=== PATIENT | female | born 1945 | race Caucasian/White ===

== ENCOUNTER → 2016-05-10 | Outpatient (CLI) | payer MEDICARE, OTHER ==
--- NOTE | 2016-05-10 12:57 | REP ---
Clinical: Lung screening. History of smoking. Technique: Axial low-dose images from the thoracic inlet to the upper abdomen using lung screening technique. Findings: Moderate emphysematous changes are appreciated with mild perihilar and basilar bronchiectasis as well as focal area of scarring along the periphery of the right apex. No pulmonary parenchymal consolidation, nodule or mass lesion. No pleural effusion/reaction or pneumothorax. Mild ectasia to the thoracic aorta. Impression: Lung-RADS category I-S. Right apical scarring and emphysematous changes noted. No pulmonary parenchymal nodule or mass lesion identified. Signed by Sunday Gaitan MD 05/10/2016 12:48 P
== END ==
LOC: M RAD 12:25
PROVIDERS: ATTEND Internal Medicine Pulmonary Disease
DX: J43.1 Panlobular emphysema (principal); F17.218 Nicotine dependence, cigarettes, with other nicotine-induced disorders

== ENCOUNTER 2016-10-11 10:46 | Emergency (ER) | payer MEDICARE, OTHER ==
[~2016-10-11] VITALS: Ht 162.6 cm; Wt 60.9 kg
[2016-10-11] MEDS ORDERED: MELO15TA4 (11:02)
[2016-10-11] MEDS ORDERED: METO1TAB33 (11:02)
[2016-10-11] MEDS ORDERED: ESCI20TA (11:02)
[2016-10-11] MEDS ORDERED: LOSA100T36 (11:02)
[2016-10-11] MEDS ORDERED: VITA250L PO (11:02)
[2016-10-11] MEDS ORDERED: DICL1GEL3 (11:02)
[2016-10-11] MEDS ORDERED: ANOR1AER (11:02)
[2016-10-11] MEDS ORDERED: ALPR0.25 (11:02)
[2016-10-11] MEDS ORDERED: ASPI81TA85 PO (11:02)
[2016-10-11] MEDS ORDERED: PANT40TA2 (11:02)
[2016-10-11] MEDS ORDERED: PRESCAP PO (11:02)
[2016-10-11] MEDS ORDERED: PROAAER10 (11:02)
[2016-10-11] MEDS ORDERED: IRON18TA2 PO (11:02)
[2016-10-11] MEDS ORDERED: TRAM50TA2 (11:02)
[2016-10-11] MEDS ORDERED: ZANA4CAP (11:02)
[2016-10-11 11:51] LABS: EOS # 0.1 K/mm3 (0.0-0.50); EOS % 2.5 % (0.0-3.0); LARGE UNSTAINED CELL # 0.1 K/mm3 (0.0-0.4); LARGE UNSTAINED CELL % 2.1 % (0.0-4.0); LYMPH # 1.3 K/mm3 (1.5-4.5); LYMPH % 23.4 % (24.0-44.0); MEAN CORPUSCULAR HEMOGLOBIN 33.2 pg (27.0-33.0); MEAN CORPUSCULAR HGB CONC 33.1 g/dl (32.0-36.5); MEAN CORPUSCULAR VOLUME 100.3 fl (80.0-96.0); MONO # 0.4 K/mm3 (0.0-0.8); MONO % 6.8 % (0.0-5.0); NEUTROPHILS # 3.3 K/mm3 (1.8-7.7); NEUTROPHILS % 64.3 % (36.0-66.0); PLATELET COUNT, AUTOMATED 253 k/mm3 (150-450); RED CELL DISTRIBUTION WIDTH 13.4 % (11.5-14.5); WHITE BLOOD COUNT 5.1 K/mm3 (4.0-10.0)
[2016-10-11 11:53] LABS: ADD MORPHOLOGY? NO
[2016-10-11 11:56] LABS: ANION GAP 7 MEQ/L (8-16); BLOOD UREA NITROGEN 14 MG/DL (7-18); CALCIUM LEVEL 8.5 MG/DL (8.8-10.2); CARBON DIOXIDE LEVEL 26 MEQ/L (21-32); CHLORIDE LEVEL 103 MEQ/L (98-107); CREATININE FOR GFR 0.78 MG/DL (0.55-1.02); GLOMERULAR FILTRATION RATE > 60.0 (>39); GLUCOSE, FASTING 88 MG/DL (83-110); POTASSIUM SERUM 4.4 MEQ/L (3.5-5.1); SODIUM LEVEL 136 MEQ/L (136-145)
--- NOTE | 2016-10-11 12:07 | REP ---
CT Head without contrast HISTORY: Visual changes COMPARISON: 01/12/2015 Areas of decreased attenuation are present in the basal ganglia. These represent old lacunar infarctions. Areas of decreased attenuation are present in the periventricular and subcortical white matter. This represents small-vessel ischemic disease. There is no intraparenchymal hemorrhage, acute infarct, mass or midline shift. The ventricular system and cortical sulci are dilated consistent with minimal volume loss. There is no extra cerebral collection. There is no fracture. The visualized sinuses are clear. IMPRESSION: 1. Old bilateral basal ganglia lacunar infarctions. 2. Small vessel ischemic disease. 3. Mild volume loss. Signed by Fabian Spann MD 10/11/2016 11:58 A
[2016-10-11 13:47] VITALS: BP 156/67
== END 2016-10-11 13:53 | disposition home or self-care (01) ==
LOC: M ED 10:46
DX: H53.8 Other visual disturbances (principal); I10 Essential (primary) hypertension; F32.9 Major depressive disorder, single episode, unspecified; Z72.0 Tobacco use

== ENCOUNTER → 2016-10-29 | Outpatient (REF) | payer MEDICARE, OTHER ==
[~2016-10-29] MED LIST: ALPR0.25; ANOR1AER; ASPI81TA85 PO; DICL1GEL3; ESCI20TA; IRON18TA2 PO; LOSA100T36; MELO15TA4; METO1TAB33; PANT40TA2; PRESCAP PO; PROAAER10; TRAM50TA2; VITA250L PO; ZANA4CAP
== END ==
LOC: M LAB REF 13:41
PROVIDERS: ATTEND Physician Assistant
DX: L02.511 Cutaneous abscess of right hand (principal)

== ENCOUNTER → 2017-03-11 | Outpatient (REF) | payer MEDICARE, OTHER ==
[2017-03-11 19:42] LABS: IRON (FE) 142 UG/DL (50-170)
[2017-03-11 20:20] LABS: VITAMIN B12 LEVEL 957 PG/ML (247-911)
== END ==
LOC: M LAB REF 17:27
DX: D51.9 Vitamin B12 deficiency anemia, unspecified (principal); D50.9 Iron deficiency anemia, unspecified
CPT/HCPCS: 83540

== ENCOUNTER → 2017-03-12 | Outpatient (REF) | payer MEDICARE, OTHER ==
[2017-03-12 10:52] LABS: PLATELET COUNT, AUTOMATED 304 10^3/uL (150-450)
[2017-03-12 11:06] LABS: INR 0.94; PROTHROMBIN TIME 12.7 SECONDS (12.4-14.5)
[2017-03-12 11:07] LABS: PARTIAL THROMBOPLASTIN TIME 26.8 SECONDS (26.8-37.9)
== END ==
LOC: M LABDRAW1 09:55
DX: Z01.812 Encounter for preprocedural laboratory examination (principal); M51.37 Other intervertebral disc degeneration, lumbosacral region; M43.16 Spondylolisthesis, lumbar region; M51.26 Other intervertebral disc displacement, lumbar region; M48.07 Spinal stenosis, lumbosacral region
CPT/HCPCS: 85049

== ENCOUNTER → 2017-03-31 | Outpatient (REF) | payer MEDICARE, OTHER ==
[2017-03-31 20:57] LABS: CREATININE FOR GFR 0.81 MG/DL (0.55-1.30); GLOMERULAR FILTRATION RATE > 60.0 (>39)
[2017-03-31 20:57] LABS: BLOOD UREA NITROGEN 20 MG/DL (7-18)
== END ==
LOC: M LABDRAW1 18:31
DX: M51.37 Other intervertebral disc degeneration, lumbosacral region (principal)
CPT/HCPCS: 82565

== ENCOUNTER → 2017-04-18 | Outpatient (CLI) | payer MEDICARE, OTHER | LOC: M PLARAD 09:43 | DX: M51.37 Other intervertebral disc degeneration, lumbosacral region (principal); I10 Essential (primary) hypertension; Z87.442 Personal history of urinary calculi | CPT/HCPCS: 72195 ==

== ENCOUNTER 2017-07-01 17:27 | Emergency (ER) | payer MEDICARE, OTHER ==
[2017-07-01 18:30] LABS: BASO # 0.1 10^3/uL (0.0-0.2); BASO % 1.1 % (0.0-1.0); EOS # 0.2 10^3/uL (0.0-0.50); EOS % 3.2 % (0.0-3.0); HEMATOCRIT 32.2 % (36.0-47.0); HEMOGLOBIN 10.8 g/dl (12.0-15.5); IMMATURE GRANULOCYTE % 0.3 % (0-3.0); LYMPH # 1.8 10^3/uL (1.5-4.5); MEAN CORPUSCULAR HEMOGLOBIN 32.9 pg (27.0-33.0); MEAN CORPUSCULAR HGB CONC 33.5 g/dl (32.0-36.5); MEAN CORPUSCULAR VOLUME 98.2 fl (80.0-96.0); MONO # 0.7 10^3/uL (0.0-0.8); MONO % 10.8 % (0.0-5.0); NEUTROPHILS # 3.7 10^3/uL (1.8-7.7); NEUTROPHILS % 56.6 % (36.0-66.0); PLATELET COUNT, AUTOMATED 293 10^3/uL (150-450); RED BLOOD COUNT 3.28 10^6/uL (4.00-5.40); RED CELL DISTRIBUTION WIDTH 13.9 % (11.5-14.5); WHITE BLOOD COUNT 6.5 10^3/uL (4.0-10.0)
[2017-07-01 18:52] LABS: ANION GAP 7 MEQ/L (8-16); BLOOD UREA NITROGEN 17 MG/DL (7-18); CALCIUM LEVEL 8.5 MG/DL (8.8-10.2); CARBON DIOXIDE LEVEL 23 MEQ/L (21-32); CHLORIDE LEVEL 105 MEQ/L (98-107); CREATININE FOR GFR 0.75 MG/DL (0.55-1.30); GLOMERULAR FILTRATION RATE > 60.0 (>39); GLUCOSE, FASTING 112 MG/DL (70-100); MAGNESIUM LEVEL 2.4 MG/DL (1.8-2.4); SODIUM LEVEL 135 MEQ/L (136-145); TROPONIN I < 0.02 NG/ML (< 0.10)
[2017-07-01 18:57] LABS: CK-MB VALUE MASS 5.6 NG/ML (<3.6); CPK CREATINE PHOSPHOKINASE 225 U/L (26-192); MB/CK RELATIVE INDEX 2.48 (< OR =4)
[2017-07-02 00:29] LABS: BEDSIDE GLUCOSE 128 MG/DL (83-110)
== END 2017-07-01 19:54 | disposition home or self-care (01) ==
LOC: M ED 17:27
DX: R55 Syncope and collapse (principal); R00.1 Bradycardia, unspecified; I10 Essential (primary) hypertension; J44.9 Chronic obstructive pulmonary disease, unspecified; K21.9 Gastro-esophageal reflux disease without esophagitis; F33.9 Major depressive disorder, recurrent, unspecified; F41.9 Anxiety disorder, unspecified; M19.90 Unspecified osteoarthritis, unspecified site; F17.200 Nicotine dependence, unspecified, uncomplicated; Z79.899 Other long term (current) drug therapy; Z98.890 Other specified postprocedural states; Z79.82 Long term (current) use of aspirin; Z88.5 Allergy status to narcotic agent; Z88.1 Allergy status to other antibiotic agents; Z88.0 Allergy status to penicillin; Z88.2 Allergy status to sulfonamides
CPT/HCPCS: 71046

== ENCOUNTER 2017-10-11 08:19 | Emergency (ER) | payer MEDICARE, OTHER ==
[2017-10-11] MEDS ORDERED: ONDANSETRON 4MG/2ML VIAL (J2405) IV (09:45)
[2017-10-11] MEDS ORDERED: KETOROLAC 30 MG/ML VIAL (J1885) IV (09:45)
[2017-10-11 10:09] LABS: BASO % 0.8 % (0.0-1.0); EOS # 0.1 10^3/uL (0.0-0.50); EOS % 1.5 % (0.0-3.0); HEMATOCRIT 31.8 % (36.0-47.0); HEMOGLOBIN 10.6 g/dl (12.0-15.5); IMMATURE GRANULOCYTE % 0.4 % (0-3.0); LYMPH % 18.9 % (24.0-44.0); MEAN CORPUSCULAR HEMOGLOBIN 33.3 pg (27.0-33.0); MEAN CORPUSCULAR HGB CONC 33.3 g/dl (32.0-36.5); MONO # 0.5 10^3/uL (0.0-0.8); NEUTROPHILS # 3.5 10^3/uL (1.8-7.7); NEUTROPHILS % 68.4 % (36.0-66.0); PLATELET COUNT, AUTOMATED 272 10^3/uL (150-450); RED BLOOD COUNT 3.18 10^6/uL (4.00-5.40); WHITE BLOOD COUNT 5.2 10^3/uL (4.0-10.0)
[2017-10-11] MEDS: ONDANSETRON 4MG/2ML VIAL (J2405) IV (10:16)
[2017-10-11 10:36] LABS: ALBUMIN 3.3 GM/DL (3.2-5.2); ALBUMIN/GLOBULIN RATIO 1.43 (1.00-1.93); ALKALINE PHOSPHATASE 52 U/L (45-117); ALT/SGPT 19 U/L (12-78); ANION GAP 7 MEQ/L (8-16); AST/SGOT 16 U/L (7-37); BILIRUBIN,DIRECT < 0.1 MG/DL (0.0-0.2); BILIRUBIN,TOTAL 0.3 MG/DL (0.2-1.0); BLOOD UREA NITROGEN 19 MG/DL (7-18); CALCIUM LEVEL 7.6 MG/DL (8.8-10.2); CARBON DIOXIDE LEVEL 25 MEQ/L (21-32); CHLORIDE LEVEL 108 MEQ/L (98-107); CREATININE FOR GFR 0.66 MG/DL (0.55-1.30); GLOMERULAR FILTRATION RATE > 60.0 (>39); GLUCOSE, FASTING 88 MG/DL (70-100); LIPASE 173 U/L (73-393); POTASSIUM SERUM 4.1 MEQ/L (3.5-5.1); SODIUM LEVEL 140 MEQ/L (136-145); TOTAL PROTEIN 5.6 GM/DL (6.4-8.2)
[2017-10-11 10:43] LABS: KETONE, URINE AUTO RFX TRACE mg/dL (NEGATIVE); LEUKOCYTE ESTERASE UR AUTO RFX NEGATIVE (NEGATIVE); NITRITE, URINE AUTO RFX NEGATIVE (NEGATIVE); RBC, URINE AUTO RFX 1 /HPF (0-3); SPECIFIC GRAVITY UR AUTO RFX 1.012 (1.002-1.035); SQUAM EPITHELIAL CELL UR AURFX 0 /HPF (0-6); WBC, URINE AUTO RFX 1 /HPF (0-3)
[2017-10-11] MEDS: MORPHINE 2 MG/ML 1ML SYRINGE (J2270) IV ×2 (10:43)
== END 2017-10-11 12:54 | disposition home or self-care (01) ==
LOC: M ED 08:19
DX: K80.50 Calculus of bile duct without cholangitis or cholecystitis without obstruction (principal); R00.1 Bradycardia, unspecified; I10 Essential (primary) hypertension; K21.9 Gastro-esophageal reflux disease without esophagitis; J44.9 Chronic obstructive pulmonary disease, unspecified; Z86.19 Personal history of other infectious and parasitic diseases; M19.90 Unspecified osteoarthritis, unspecified site; F17.210 Nicotine dependence, cigarettes, uncomplicated; Z88.5 Allergy status to narcotic agent; Z88.1 Allergy status to other antibiotic agents; Z88.0 Allergy status to penicillin; Z88.2 Allergy status to sulfonamides; Z90.49 Acquired absence of other specified parts of digestive tract; Z82.49 Family history of ischemic heart disease and other diseases of the circulatory system
CPT/HCPCS: J2405

== ENCOUNTER → 2017-10-16 | Outpatient (REF) | payer MEDICARE, OTHER ==
[2017-10-17 14:29] LABS: CONTROL LINE HPYORI INT CTR LINE PRESENT; H PYLORI QUALITATIVE IgG NEGATIVE (NEGATIVE)
== END ==
LOC: M LAB REF 17:36
DX: R10.13 Epigastric pain (principal)
CPT/HCPCS: 86677

== ENCOUNTER → 2017-10-24 | Outpatient (CLI) | payer MEDICARE, OTHER | LOC: M RAD 07:23 | DX: R10.11 Right upper quadrant pain (principal) | CPT/HCPCS: J2805 ==

== ENCOUNTER → 2018-03-03 | Outpatient (REF) | payer MEDICARE, OTHER ==
[~2018-03-03] MED LIST changes: +CITRTAB18 PO; -LOSA100T36; +LOSA100T50; +MELO15TA28; -MELO15TA4; -METO1TAB33; +METO1TAB33 PO; +NEUR100C PO; +NORCOTAB PO; -PANT40TA2; +PANT40TA3; +ZOFR4TAB14 PO; +ginseng
[2018-03-03 14:19] LABS: ALBUMIN 3.8 GM/DL (3.2-5.2); ALT/SGPT 13 U/L (12-78); BILIRUBIN,TOTAL 0.5 MG/DL (0.2-1.0); BLOOD UREA NITROGEN 13 MG/DL (7-18); CALCIUM LEVEL 8.9 MG/DL (8.8-10.2); CARBON DIOXIDE LEVEL 25 MEQ/L (21-32); CHLORIDE LEVEL 100 MEQ/L (98-107); CREATININE FOR GFR 0.74 MG/DL (0.55-1.30); DRVV SCREEN 35.8 SEC; GLOMERULAR FILTRATION RATE > 60.0 (>39); GLUCOSE, FASTING 88 MG/DL (70-100); POTASSIUM SERUM 4.3 MEQ/L (3.5-5.1); RHEUMATOID FACTOR QUANT < 10.0 IU/ML (<15.0); SODIUM LEVEL 134 MEQ/L (136-145); TOTAL PROTEIN 6.4 GM/DL (6.4-8.2)
[2018-03-03 14:21] LABS: PTT LUPUS TYPE ANTICOAG SCREEN 0.9 (0-1.2)
[2018-03-03 14:49] LABS: VITAMIN B12 LEVEL 1517 PG/ML (247-911)
[2018-03-03 15:22] LABS: BASO # 0.1 10^3/uL (0.0-0.2); BASO % 1.2 % (0.0-1.0); EOS # 0.1 10^3/uL (0.0-0.50); EOS % 1.9 % (0.0-3.0); HEMATOCRIT 32.2 % (36.0-47.0); HEMOGLOBIN 10.7 g/dl (12.0-15.5); LYMPH # 1.5 10^3/uL (1.5-4.5); LYMPH % 28.1 % (24.0-44.0); MEAN CORPUSCULAR HEMOGLOBIN 32.5 pg (27.0-33.0); MEAN CORPUSCULAR HGB CONC 33.2 g/dl (32.0-36.5); MEAN CORPUSCULAR VOLUME 97.9 fl (80.0-96.0); MONO # 0.5 10^3/uL (0.0-0.8); MONO % 10.4 % (0.0-5.0); NEUTROPHILS % 58.2 % (36.0-66.0); PLATELET COUNT, AUTOMATED 240 10^3/uL (150-450); RED BLOOD COUNT 3.29 10^6/uL (4.00-5.40); WHITE BLOOD COUNT 5.2 10^3/uL (4.0-10.0)
[2018-03-03 15:38] LABS: HEMOGLOBIN A1c 5.2 %
[2018-03-03 16:35] LABS: ERYTHROCYTE SEDIMENTATION RATE 24 mm/hr (0-30)
[2018-03-04 17:35] LABS: FOLATE > 24.0 NG/ML (>5.4)
[2018-03-05 11:15] LABS: ALBUMIN 4.11 GM/DL (3.29-5.55); ALBUMIN % 64.2 % (55.8-66.1); ALPHA-1-GLOBULIN % 4.5 % (2.9-4.9); ALPHA-1-GLOBULINS 0.29 GM/DL (0.17-0.41); ALPHA-2-GLOBULINS 0.75 GM/DL (0.42-0.99); ALPHA-2-GLOBULINS % 11.7 % (7.1-11.8); BETA-1-GLOBULINS 0.44 GM/DL (0.28-0.60); BETA-1-GLOBULINS % 6.8 % (4.7-7.2); BETA-2-GLOBULINS 0.24 GM/DL (0.19-0.55); BETA-2-GLOBULINS % 3.7 % (3.2-6.5); GAMMA GLOBULIN % 9.1 % (11.1-18.8); GAMMA GLOBULINS 0.58 GM/DL (0.65-1.58)
[2018-03-06 10:23] LABS: VITAMIN B1 LEVEL WHOLE BLOOD 81.1 nmol/L (66.5-200.0); VITAMIN B6,PYRIDOXAL PHOSPHATE 10.8 ug/L (2.0-32.8)
[2018-03-07 00:06] LABS: ANCA-ATYPICAL <1:20 titer (Neg:<1:20); ANTI DOUBLE STRAND-DNA AB <1 IU/mL (0-9); ANTINUCLEAR ANTIBODIES DIRECT Negative (Negative); CERULOPLASMIN 29.8 mg/dL (19.0-39.0); COPPER PLASMA 128 ug/dL (72-166); CYTOPLASMIC NEUTROP AB ANCA-C <1:20 titer (Neg:<1:20); LEAD BLOOD ADULT 2 ug/dL (0-4); Lyme Disease IgG/IgM Antibodie <0.91 ISR (0.00-0.90); Lyme Disease IgM Ab Quantitati <0.80 index (0.00-0.79); MERCURY LEVEL 1.2 ug/L (0.0-14.9); PERINUCLEAR AB ANCA-P <1:20 titer (Neg:<1:20); SJOGREN'S ANTI SS-A <0.2 AI (0.0-0.9); SJOGREN'S ANTI SS-B <0.2 AI (0.0-0.9); VITAMIN E(ALPHA TOCOPHEROL) 36.4 mg/L (9.0-29.0); VITAMIN E(GAMMA TOCOPHEROL) 0.3 mg/L (0.5-4.9)
== END ==
LOC: M LABNEURO 09:00
PROVIDERS: ATTEND Psychiatry & Neurology Neurology
DX: G62.9 Polyneuropathy, unspecified (principal)

== ENCOUNTER 2018-08-22 16:21 | Emergency (ER) | payer MEDICARE, OTHER ==
[~2018-08-22] VITALS: Ht 165.1 cm; Wt 63.2 kg
[~2018-08-22 16:21] MED LIST changes: +HYDR-3715 PO; -NORCOTAB PO
[2018-08-22] MEDS ORDERED: MORPHINE 2 MG/ML 1ML SYRINGE (J2270) IV PRN (16:45)
[2018-08-22] MEDS ORDERED: ONDANSETRON 4MG/2ML VIAL (J2405) IV ONE (16:45)
[2018-08-22 17:02] LABS: BASO # 0.1 10^3/uL (0.0-0.2); EOS # 0.4 10^3/uL (0.0-0.50); HEMATOCRIT 29.4 % (36.0-47.0); HEMOGLOBIN 9.3 g/dl (12.0-15.5); LYMPH # 1.6 10^3/uL (1.5-4.5); LYMPH % 19.6 % (24.0-44.0); MEAN CORPUSCULAR HEMOGLOBIN 32.2 pg (27.0-33.0); MEAN CORPUSCULAR HGB CONC 31.6 g/dl (32.0-36.5); MEAN CORPUSCULAR VOLUME 101.7 fl (80.0-96.0); MONO # 0.7 10^3/uL (0.0-0.8); MONO % 8.7 % (0.0-5.0); NEUTROPHILS # 5.4 10^3/uL (1.8-7.7); NEUTROPHILS % 65.3 % (36.0-66.0); PLATELET COUNT, AUTOMATED 335 10^3/uL (150-450); RED BLOOD COUNT 2.89 10^6/uL (4.00-5.40); WHITE BLOOD COUNT 8.2 10^3/uL (4.0-10.0)
[2018-08-22] MEDS ORDERED: OMEGCAP4 PO (17:08)
[2018-08-22] MEDS ORDERED: CIDA500T2 PO (17:10)
[2018-08-22] MEDS ORDERED: DOCU-129 PO (17:10)
[2018-08-22] MEDS ORDERED: RA T500C2 PO (17:10)
--- NOTE | 2018-08-22 17:17 | REP ---
Clinical: Emphysema Comparison: 08/04/2018 . Findings: The mediastinum and cardiac silhouette are stable and within normal limits for portable technique. The lung stahl demonstrate chronic stable changes without acute consolidation, effusion, or pneumothorax. Skeletal structures are intact. Impression: No acute cardiopulmonary process appreciated. Electronically Signed by Sunday Gaitan MD 08/22/2018 05:09 P
[2018-08-22 17:41] LABS: ALBUMIN 3.3 GM/DL (3.2-5.2); ALT/SGPT 18 U/L (12-78); BILIRUBIN,DIRECT 0.1 MG/DL (0.0-0.2); BILIRUBIN,TOTAL 0.2 MG/DL (0.2-1.0); BLOOD UREA NITROGEN 18 MG/DL (7-18); CALCIUM LEVEL 8.4 MG/DL (8.8-10.2); CARBON DIOXIDE LEVEL 26 MEQ/L (21-32); CHLORIDE LEVEL 104 MEQ/L (98-107); CK-MB VALUE MASS 4.7 NG/ML (<3.6); CPK CREATINE PHOSPHOKINASE 304 U/L (26-192); CREATININE FOR GFR 0.77 MG/DL (0.55-1.30); GLOMERULAR FILTRATION RATE > 60.0 (>39); GLUCOSE, FASTING 88 MG/DL (70-100); LIPASE 174 U/L (73-393); MB/CK RELATIVE INDEX 1.55 (< OR =4); NT-PRO BNP 694 PG/ML (<450); POTASSIUM SERUM 4.4 MEQ/L (3.5-5.1); SODIUM LEVEL 137 MEQ/L (136-145); TOTAL PROTEIN 6.2 GM/DL (6.4-8.2); TROPONIN I < 0.02 NG/ML (< 0.10)
[2018-08-22] MEDS ORDERED: rOPINIRole 2MG TAB PO STA (17:53)
[2018-08-22] MEDS ORDERED: ISOVUE-370 76% 100ML VIAL (Q9967) As Ordered ONE (17:57)
--- NOTE | 2018-08-22 18:34 | ECGEPIP ---
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
--- NOTE | 2018-08-22 18:48 | REPVR ---
EXAM: CT Angiography Chest With Contrast EXAM DATE/TIME: 08/22/2018 6:11 PM CLINICAL HISTORY: 73 years old, female; Chest pain; Type not specified; Additional info: Pleuritic cp TECHNIQUE: Imaging protocol: Axial computed tomographic angiography images of the chest with intravenous contrast using CT angiography protocol. Coronal and sagittal reformatted images were created and reviewed. 3D rendering: MIP reconstructed images were created and reviewed. Radiation optimization: All CT scans at this facility use at least one of these dose optimization techniques: automated exposure control; mA and/or kV adjustment per patient size (includes targeted exams where dose is matched to clinical indication); or iterative reconstruction. Contrast material: ISOVUE 370; Contrast volume: 100 ml; Contrast route: IV; COMPARISON: CR PORTABLE CHEST X-RAY 08/22/2018 5:02 PM FINDINGS: Pulmonary arteries: Normal. No pulmonary emboli. Aorta: Unremarkable. No aortic aneurysm. No aortic dissection. Lungs: Coarse linear pleural-based opacities noted in the right upper lobe, the right lower lobe and the left lower lobe. Scattered "tree in bud" pattern of inflammation noted in the right middle lobe and right upper lobe Pleural space: Unremarkable. No pneumothorax. No pleural effusion. Heart: Unremarkable. No cardiomegaly. No pericardial effusion. Lymph nodes: Unremarkable. No enlarged lymph nodes. Bones/joints: Markedly narrowed intervertebral disc space noted at L1-2 with endplate sclerosis, marginal osteophytes and vacuum disc.. Anterior aspect of the right fifth rib is bifid Soft tissues: Unremarkable. IMPRESSION: 1. No acute pulmonary embolism. 2. Mild patchy bronchiolitis suggested in the right upper lobe and right middle lobe 3. Scarring in both lungs Electronically signed by: Cierra Purvis On 08/22/2018 18:47:50 PM
--- NOTE | 2018-08-22 19:07 | REPVR ---
EXAM: CT Abdomen and Pelvis With Contrast EXAM DATE/TIME: 08/22/2018 6:11 PM CLINICAL HISTORY: 73 years old, female; Abdominal pain; Flank; Right; Additional info: Flank pain TECHNIQUE: Imaging protocol: Axial computed tomography images of the abdomen and pelvis with intravenous contrast. Coronal and sagittal reformatted images were created and reviewed. Radiation optimization: All CT scans at this facility use at least one of these dose optimization techniques: automated exposure control; mA and/or kV adjustment per patient size (includes targeted exams where dose is matched to clinical indication); or iterative reconstruction. Contrast material: ISOVUE 370; Contrast volume: 100 ml; Contrast route: IV; COMPARISON: No relevant prior studies available. FINDINGS: Lungs: Coarse linear somewhat irregular opacity noted in the right lower lobe contiguous with the major fissure coarse linear opacity at the left lung base. Liver: Normal. No mass. Gallbladder and bile ducts: Common bile duct measures 5 mm. Pancreas: Pancreatic duct within the tail the pancreas is mildly prominent measuring 4 mm in diameter. Spleen: Normal. No splenomegaly. Adrenals: Normal. No mass. Kidneys and ureters: Mild fullness of the renal collecting systems bilaterally. No definite renal calculi. Stomach and bowel: There is mild thickening noted of the gastric folds within the fundus and body of the stomach Moderate amount of stool seen within the colon. Appendix: No evidence of appendicitis. Intraperitoneal space: Mild hazy density noted of the mesenteric fat within the abdomen. Vasculature: Normal. No abdominal aortic aneurysm. Lymph nodes: Normal. No enlarged lymph nodes. Bladder: The bladder is distended measuring 10 x 6.4 x 11.3 cm for a volume of 372 cc. Reproductive: Unremarkable as visualized. Bones/joints: Rotatory levoscoliosis of the thoracolumbar spine. Advanced degenerative changes noted throughout the lumbar spine Soft tissues: Relative atrophy of the right gluteus medius IMPRESSION: 1. Mild fullness of the renal pelvis bilaterally in both kidneys may be related to mild bladder distention. The bladder contains 372 cc of urine. No calculi 2. Mild thickening of the gastric folds within the fundus and body of the stomach. Gastritis might be considered. 3. Moderate amount of stool in the colon. 4. Mild hazy density noted within the mesenteric fat of the abdomen. No ascites. No air. The appearance is nonspecific. Considerations include mesenteric vascular congestion, peritonitis, mesenteric adenitis 5. Linear somewhat irregular opacity in the right lower lobe contiguous with the major fissure probably not significantly changed from 2017 although not as well-seen probably due to technical factors (old examination was a low dose CT). Electronically signed by: Cierra Purvis On 08/22/2018 19:06:44 PM
[2018-08-22 22:22] LABS: CK-MB VALUE MASS 4.3 NG/ML (<3.6); CPK CREATINE PHOSPHOKINASE 249 U/L (26-192); MB/CK RELATIVE INDEX 1.73 (< OR =4); TROPONIN I < 0.02 NG/ML (< 0.10)
[2018-08-22 22:31] VITALS: BP 125/58
[2018-08-22] MEDS ORDERED: KETO10TAB PO (22:44)
--- NOTE | 2018-08-23 15:37 | ECGEPIP ---
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
== END 2018-08-22 22:56 | disposition home or self-care (01) ==
LOC: M ED 16:21 → EDBD 16:21 → M ED 22:56
DX: R07.89 Other chest pain (principal); R11.0 Nausea; I10 Essential (primary) hypertension; J44.9 Chronic obstructive pulmonary disease, unspecified; E78.9 Disorder of lipoprotein metabolism, unspecified; G89.29 Other chronic pain; M54.9 Dorsalgia, unspecified; Z87.442 Personal history of urinary calculi; Z79.899 Other long term (current) drug therapy; Z79.82 Long term (current) use of aspirin; Z88.0 Allergy status to penicillin; Z88.1 Allergy status to other antibiotic agents; Z88.2 Allergy status to sulfonamides; Z88.5 Allergy status to narcotic agent; F17.210 Nicotine dependence, cigarettes, uncomplicated
CPT/HCPCS: 71045; 71275; 74177; 80048; 80076; 81001; 82550; 82553; 83690; 83880; 84443; 84484; 85025; 93005; 93041; 94760; 96374; 96375; 99285; J2270; J2405; Q9967

== ENCOUNTER → 2018-09-29 | Outpatient (CLI) | payer MEDICARE, OTHER ==
[~2018-09-29] MED LIST changes: +CIDA500T2 PO; +DOCU-129 PO; +KETO10TAB PO; +OMEGCAP4 PO; +RA T500C2 PO
--- NOTE | 2018-09-30 08:01 | REP ---
REASON FOR EXAM: Followup right upper and right middle lobe patchy opacities. All prior chest CTs were reviewed, the latest of which is dated 08/22/2018. The lack of intravenous contrast decreases the sensitivity of the exam. The mediastinum and pulmonary sina are unchanged. There is adenopathy. In the aortic pulmonary window borderline and mildly enlarged lymph nodes cannot be ruled out in the pulmonary sina due to the lack of the intravenous contrast. There are no pleural or pericardial effusions. There is no change in the imaged upper abdomen or imaged osseous structures. IMPRESSION: Evaluation of the lung stahl shows cylindrical bronchiectasis and basilar fibrotic changes status quo. Most of the abnormal somewhat patchy and ground glass opacities seen scattered throughout the lung stahl have completely resolved. Minimal ground glass opacity persists in the anterior inferior anterior segment of the right upper lobe. There are no new abnormal opacities. There is a minimal amount of soft tissue density adherent to the anterior wall of the distal tracheal likely mucoid debris since it represents a change from the prior exam. IMPRESSION: 1. Improved lung stahl as described above, but with chronic changes as described above. 2. Mediastinal adenopathy of uncertain etiology, correlate clinically with appropriate followup. 3. Other findings as described above. Electronically Signed by Ebenezer Yarbrough DO 09/30/2018 09:36 A
== END ==
LOC: M RAD 12:19
PROVIDERS: ATTEND Internal Medicine Pulmonary Disease
DX: R91.8 Other nonspecific abnormal finding of lung field (principal)

== ENCOUNTER → 2018-11-10 | Outpatient (CLI) | payer MEDICARE, OTHER ==
[~2018-11-10] MED LIST changes: -ALPR0.25; +ALPR0.25 PO; +ANOR1AER PO; -ESCI20TA; +ESCI20TA PO; +FERR29TA PO; +GABA-845 PO; +LINZ145C PO; -LOSA100T50; +LOSA100T50 PO; +MIRA3350 PO; +MULT1TAB42 PO; +PANT40TA3 PO; +ROPI1TAB PO; +TRAM50TA2 PO
[2018-11-10 13:54] LABS: BLOOD UREA NITROGEN 17 MG/DL (7-18); GLOMERULAR FILTRATION RATE > 60.0 (>39)
== END ==
LOC: M SMT 11:47
PROVIDERS: ATTEND Internal Medicine Pulmonary Disease
DX: R59.0 Localized enlarged lymph nodes (principal)

== ENCOUNTER → 2018-11-18 | Outpatient (CLI) | payer MEDICARE, OTHER ==
[~2018-11-18] MED LIST changes: +ISOVUE-370 76% 100ML VIAL (Q9967) As Ordered ONE
--- NOTE | 2018-11-18 15:48 | REP ---
CT chest with IV contrast: History: Localized enlarged lymph nodes. Right paratracheal node was interpreted as enlarged on prior study, 1.[address] contrast dose: 75 ml of intravenous Isovue 370. Comparison chest CT study September 29, 2018 and August 22, 2018. CT findings: There is a small curvilinear zone of fibrosis in the right lung apex which is unchanged. There are linear fibrotic changes in the left lower lobe and right lower lobe which are stable as well. No suspicious pulmonary nodule is appreciated. There is a stable 3 mm nodule in the right lower lobe on page 64 of 118, series 201. There is no visible mediastinal or hilar lymphadenopathy. There are scattered normal appearing fat replaced pretracheal and AP window region lymph nodes none of which is felt to be enlarged. There is curvilinear calcification in the ligamentum arteriosum unchanged. No bony destructive lesion is seen. Impression: There is no visible mediastinal or hilar adenopathy. Scattered areas of parenchymal fibrosis are again seen unchanged. No significant pulmonary nodule is appreciated. Electronically Signed by Ajay Decker MD 11/18/2018 04:09 P
== END ==
LOC: M RAD 11:13
PROVIDERS: ATTEND Internal Medicine Pulmonary Disease
DX: R59.0 Localized enlarged lymph nodes (principal); J84.10 Pulmonary fibrosis, unspecified; R91.1 Solitary pulmonary nodule
CPT/HCPCS: 71260; Q9967

== ENCOUNTER 2018-11-23 07:36 | Day surgery (SDC) | payer MEDICARE, OTHER ==
[~2018-11-23] VITALS: Ht 165.1 cm; Wt 60.5 kg
[~2018-11-23 07:36] MED LIST changes: -ISOVUE-370 76% 100ML VIAL (Q9967) As Ordered ONE; +NS 1,000 ML IV ONE
[2018-11-23] MEDS ORDERED: LIDOCAINE 2% INJ 100 MG/5 ML SDV (FOR ANES.) As Ordered ONE (09:14)
[2018-11-23] MEDS ORDERED: PROPOFOL 200 MG/20 ML VIAL As Ordered ONE (09:14)
--- NOTE | 2018-11-23 10:11 | ROOR ---
Patient Name: Sona Evans Procedure Date: 11/23/2018 9:50 AM Date of : 1945 Age: 73 Room: [facility] Gender: Female Note Status: Finalized Procedure: Upper Endoscopy + Biopsies Indications: Heartburn, Exclusion of Galindo's esophagus Providers: Logan Ham MD Referring MD: KLYIE PINEDA JR, MD Requesting Provider: Medicines: Monitored Anesthesia Care Complications: No immediate complications. Procedure: Pre-Anesthesia Assessment: - The heart rate, respiratory rate, oxygen saturations, blood pressure, adequacy of pulmonary ventilation, and response to care were monitored throughout the procedure. The Endoscope was introduced through the mouth, and advanced to the second part of duodenum. The upper GI endoscopy was accomplished without difficulty. The patient tolerated the procedure well. Findings: The Z-line was regular and was found 45 cm from the incisors. Multiple biopsies were obtained with cold forceps for evaluation to rule out Galindo's Esophagus randomly at the gastroesophageal junction. A small hiatal hernia was present. Diffuse, yellow plaques were found in the entire esophagus. Biopsies were taken with a cold forceps for histology. No other significant abnormalities were identified in a careful examination of the stomach. The exam of the duodenum was otherwise normal. Impression: - Z-line regular, 45 cm from the incisors. - Small hiatal hernia. - Esophageal plaques were found, suspicious for candidiasis. Biopsied. - Multiple biopsies were obtained at the gastroesophageal junction. - The examination was otherwise normal. Recommendation: - Await pathology results. - Discharge patient to home. - Continue present medications. - Await pathology results. - Telephone GI clinic for pathology results in 1 week. - Diflucan (fluconazole) 100 mg PO daily for 10 days. - Return to referring physician. - The findings and recommendations were discussed with the patient's family. Logan Ham MD Logan Ham MD 11/23/2018 10:11:07 AM Electronically signed by Logan Ham MD Number of Addenda: 0 Note Initiated On: 11/23/2018 9:50 AM Estimated Blood Loss: Estimated blood loss: none.
--- NOTE | 2018-11-23 10:29 | ROOR ---
Patient Name: Sona Evans Procedure Date: 11/23/2018 9:50 AM Date of : 1945 Age: 73 Room: [facility] Gender: Female Note Status: Finalized Procedure: Total Colonoscopy to Cecum Indications: High risk colon cancer surveillance: Personal history of colonic polyps, Last colonoscopy 5 years ago Providers: Logan Ham MD Referring MD: KYLIE PINEDA JR, MD Requesting Provider: Medicines: Monitored Anesthesia Care Complications: No immediate complications. Procedure: Pre-Anesthesia Assessment: - The heart rate, respiratory rate, oxygen saturations, blood pressure, adequacy of pulmonary ventilation, and response to care were monitored throughout the procedure. The Colonoscope was introduced through the anus and advanced to the cecum, identified by appendiceal orifice and ileocecal valve. The colonoscopy was performed without difficulty. The patient tolerated the procedure well. The quality of the bowel preparation was excellent. Findings: The perianal and digital rectal examinations were normal. Non-bleeding internal hemorrhoids were found during retroflexion. The hemorrhoids were small and Grade I (internal hemorrhoids that do not prolapse). Scattered small-mouthed diverticula were found in the recto-sigmoid colon, sigmoid colon and descending colon. The exam was otherwise without abnormality on direct and retroflexion views. Impression: - Non-bleeding internal hemorrhoids. - Diverticulosis in the recto-sigmoid colon, in the sigmoid colon and in the descending colon. - The examination was otherwise normal on direct and retroflexion views. - No specimens collected. - The exam was otherwise normal to the cecum. Recommendation: - Patient has a contact number available for emergencies. The signs and symptoms of potential delayed complications were discussed with the patient. Return to normal activities tomorrow. Written discharge instructions were provided to the patient. - High fiber diet. - Discharge patient to home. - Continue present medications. - Repeat colonoscopy in 5 years for surveillance. - Return to referring physician. - The findings and recommendations were discussed with the patient's family. Logan Ham MD Logan Ham MD 11/23/2018 10:29:30 AM Electronically signed by Logan Ham MD Number of Addenda: 0 Note Initiated On: 11/23/2018 9:50 AM Estimated Blood Loss: Estimated blood loss: none.
[2018-11-23 10:45] VITALS: BP 144/65
== END 2018-11-23 10:53 | disposition home or self-care (01) ==
LOC: M OPP 07:36
PROVIDERS: ATTEND Internal Medicine Gastroenterology
DX: Z12.11 Encounter for screening for malignant neoplasm of colon (principal); Z86.010 Personal history of colon polyps; K64.0 First degree hemorrhoids; K57.30 Diverticulosis of large intestine without perforation or abscess without bleeding; R12 Heartburn; B37.81 Candidal esophagitis; K44.9 Diaphragmatic hernia without obstruction or gangrene; K22.8 Other specified diseases of esophagus; I10 Essential (primary) hypertension; E78.5 Hyperlipidemia, unspecified; K58.9 Irritable bowel syndrome, unspecified; F17.210 Nicotine dependence, cigarettes, uncomplicated; M19.90 Unspecified osteoarthritis, unspecified site; F41.9 Anxiety disorder, unspecified; F32.9 Major depressive disorder, single episode, unspecified; Z78.0 Asymptomatic menopausal state; J44.9 Chronic obstructive pulmonary disease, unspecified; Z88.5 Allergy status to narcotic agent; Z88.0 Allergy status to penicillin; Z88.2 Allergy status to sulfonamides; Z88.1 Allergy status to other antibiotic agents; Z79.82 Long term (current) use of aspirin; Z79.899 Other long term (current) drug therapy
CPT/HCPCS: 43239; 88305; G0105

== ENCOUNTER → 2019-08-25 | Outpatient (REF) | payer MEDICARE, OTHER ==
[~2019-08-25] MED LIST changes: -ASPI81TA85 PO; +ASPI81TA86 PO; -NS 1,000 ML IV ONE; +PANT40TA29; +PANT40TA29 PO; -PANT40TA3; -PANT40TA3 PO; -ROPI1TAB PO; +ROPI1TAB3 PO
[2019-08-25 17:56] LABS: C REACTIVE PROTEIN QUANTITATIV < 0.30 MG/DL (0.00-0.30); RHEUMATOID FACTOR QUANT < 10.0 IU/ML (<15.0); URIC ACID 3.6 MG/DL (2.6-6.0)
[2019-08-31 14:13] LABS: ANTINUCLEAR ANTIBODIES DIRECT Negative (Negative); HLA-B27 Negative (.); Lyme Disease IgG/IgM Antibodie <0.91 ISR (0.00-0.90); Lyme Disease IgM Ab Quantitati <0.80 index (0.00-0.79)
== END ==
LOC: M LAB REF 16:36
PROVIDERS: ATTEND Nurse Practitioner Adult Health
DX: M17.0 Bilateral primary osteoarthritis of knee (principal)

== ENCOUNTER → 2019-11-23 | Outpatient (CLI) | payer MEDICARE, OTHER ==
--- NOTE | 2019-11-29 10:38 | REP ---
CHEST CT WITHOUT CONTRAST: LOW DOSE SCREENING EXAM HISTORY: Nicotine dependence. COMPARISON: Comparison is made with multiple prior chest CTs, the most remote of which is from May 10, 2016, and the most recent of which is from November 18, 2018. CT FINDINGS: There is a stable curvilinear area of pleuroparenchymal fibrosis in the right apex. There are scattered areas of linear fibrosis in the left lower lobe and lingula which are unchanged. There is mild bronchial wall thickening, question bronchitis. This is unchanged. There is a tiny 2-3 mm subpleural pulmonary nodule in the right lower lobe on page 68 of 112, series 201, of todays study. This is unchanged from the April 2016 prior study and the intervening exams. No new pulmonary nodule is appreciated. No mass lesion or new infiltrate is seen. Vascular calcification is noted. Exam is otherwise unremarkable. There appear to be old healed rib fractures on the right. IMPRESSION: Stable Lung-RADS category 1 findings. Patchy areas of linear fibrosis. Repeat screening exam suggested in one year. MTDD
== END ==
LOC: M RAD 10:24
PROVIDERS: ATTEND Internal Medicine Pulmonary Disease
DX: F17.218 Nicotine dependence, cigarettes, with other nicotine-induced disorders (principal)

== ENCOUNTER → 2020-02-04 | Outpatient (CLI) | payer SELFPAY | LOC: M LABSMTC 12:01 | PROVIDERS: ATTEND Pediatrics | DX: Z20.828 Contact with and (suspected) exposure to other viral communicable diseases (principal) ==

== ENCOUNTER → 2020-04-11 | Outpatient (REF) | payer MEDICARE, OTHER ==
[~2020-04-11] MED LIST changes: -ESCI20TA PO; +ESCI20TA16 PO
[2020-04-13 16:08] LABS: H PYLORI SERUM QUANT IGM <9.0 units (0.0-8.9); H PYLORI SERUM QUANT IgG ABY 0.24 (0.00-0.79)
== END ==
LOC: M LAB REF 13:25
PROVIDERS: ATTEND Nurse Practitioner Adult Health
DX: R10.13 Epigastric pain (principal)

== ENCOUNTER → 2020-04-19 | Outpatient (CLI) | payer MEDICARE, OTHER ==
[~2020-04-19] MED LIST changes: +GASTROGRAFIN SOLUTION 30ML (Q9963) As Ordered ONE; +ISOVUE-370 76% 100ML VIAL As Ordered ONE
--- NOTE | 2020-04-19 18:24 | REP ---
INDICATION: EPIGASTRIC PAIN. COMPARISON: 08/22/2018. TECHNIQUE: Oral contrast was administered. CT abdomen performed without IV contrast. CT abdomen and pelvis performed with the intravenous administration of 100 cc of Isovue 370. Sagittal and coronal reconstruction images are performed. FINDINGS: Lung bases: Fibro atelectatic changes bilaterally. Liver: Normal Gallbladder: Unremarkable. Spleen: Normal. Adrenals: Normal. Pancreas: Normal. Kidneys: There is a 1 cm cyst in the upper pole the right kidney. There is no hydronephrosis bilaterally. Small and large bowel: Unremarkable. Free fluid: None. Abdominal aorta: No aneurysm or dissection. There are mild to moderate atherosclerotic calcifications. Adenopathy: None. Appendix: Prior appendectomy. Osseous structures: There are degenerative changes of the spine without compression deformity. Pelvis: No mass. IMPRESSION: In the upper pole the right kidney there is a 1 cm cyst. There is no free air or free fluid. There is no bowel obstruction or inflammation. Adenopathy or suspicious mass. Degenerative changes of the spine. <Electronically signed by Rex Gerard > 04/19/20 [id number]
== END ==
LOC: M RAD 16:15
PROVIDERS: ATTEND Nurse Practitioner Adult Health
DX: N28.1 Cyst of kidney, acquired (principal); R10.13 Epigastric pain
CPT/HCPCS: 74178; Q9963; Q9967

== ENCOUNTER → 2020-07-20 | Outpatient (CLI) | payer MEDICARE, OTHER ==
[~2020-07-20] MED LIST changes: -DOCU-129 PO; +DOCU-153 PO; +GABA-283 PO; -GABA-845 PO; -GASTROGRAFIN SOLUTION 30ML (Q9963) As Ordered ONE; -ISOVUE-370 76% 100ML VIAL As Ordered ONE
--- NOTE | 2020-07-20 11:03 | REP ---
INDICATION: PAIN COMPARISON: 03/03/2014 TECHNIQUE: AP, lateral, bilateral oblique and sunrise views. FINDINGS: Mild/early moderate tricompartmental degenerative changes are appreciated and relatively similar to prior examination. Findings include subtle increased sclerosis along the tibial plateau and posterior patellar margin with primarily patellofemoral and medial joint space narrowing. [place] view also demonstrates increased fraying along the anterior patellar margin suggesting quadriceps tendinopathy. No acute fracture or dislocation. No effusion.. 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 <Electronically signed by Sunday Gaitan > 07/20/20 [id number]
== END ==
LOC: M WUC 10:39
PROVIDERS: ATTEND Nurse Practitioner Adult Health
DX: M17.11 Unilateral primary osteoarthritis, right knee (principal); M25.561 Pain in right knee

== ENCOUNTER → 2020-11-06 | Outpatient (CLI) | payer MEDICARE, OTHER ==
--- NOTE | 2020-11-06 12:30 | REPMRS ---
Patient History The patient states she has not had a clinical breast exam in over a year. Patient is postmenopausal. Family history of prostate cancer in father, unknown cancer at age 50 or over in paternal grandmother. Benign cyst aspiration of the left breast, 1980. Took hormonal contraceptives for 5 years. Patient states no breast complaints today. Patient has signed MRS History Sheet. Digital Woman Screen Mammo: November 06, 2020 - Exam #: [id number] Bilateral CC and MLO view(s) were taken. Technologist: Sheridan Sargent, Technologist Prior study comparison: July 05, 2013, bilateral bilat screen digital mammo, performed at [facility] ([facility]). June 02, 2012, bilateral bilat screen digital mammo, performed at [facility] ([facility]). FINDINGS: The breast tissue is heterogeneously dense. This may lower the sensitivity of mammography. Screening. Digital screening (2D) mammography was performed bilaterally in the CC and MLO projections. Additionally, breast tomosynthesis (3D mammography) was performed bilaterally in the CC and MLO projections. Todays exam was compared to the prior exam/exams. By history, the patient has no complaints of a palpable breast abnormality or other significant breast complaints. The Volpara volumetric breast density category is C, the breasts are heterogenously dense which may obscure small masses. The breasts are unchanged in size and shape. There are no marbin-soft tissue densities or spiculated masses. There is no internal architectural distortion. There are no suspicious marbin-calcific clusters. Skin thickening or nipple retraction is not present. IMPRESSION: BI-RADS Category 2- Benign Findings. There is no evidence of malignant alteration of the breasts. Followup examination recommended in one year. This mammogram was read with the assistance of [facility] [employer],an FDA approved computer aided detection system for mammography. Negative x-ray reports should not delay surgical consultation if a dominant or clinically suspicious mass is present. The lifetime Tyrer-Cuzick score is 2.2% Not all breast cancers can be identified by mammography. Therefore, we recommend that you continue to perform regular breast self-examination and physical examination and then promptly contact your physician of any concerns or changes. Adenosis and dense breasts may obscure an underlying neoplasm. No significant changes when compared with prior studies. Assessment: BI-RADS/ACR category 2 mammogram. Benign Findings. Recommendation Routine screening mammogram of both breasts in 1 year. Electronically Signed By: Juan A Foote MD 11/06/20 [id number]
== END ==
LOC: M WHC 09:05
PROVIDERS: ATTEND Nurse Practitioner Adult Health
DX: Z12.31 Encounter for screening mammogram for malignant neoplasm of breast (principal); Z78.0 Asymptomatic menopausal state; Z92.0 Personal history of contraception

== ENCOUNTER → 2020-11-14 | Outpatient (CLI) | payer MEDICARE, OTHER ==
--- NOTE | 2020-11-14 16:14 | REP ---
INDICATION: F/U KIDNEY STONES. COMPARISON: None. TECHNIQUE: Real-time sonographic evaluation of the kidneys with Doppler FINDINGS: Multiple ultrasonographic images of the right kidney show the right kidney to measure 9.6 x 5.6 x 4.7 cm. The renal cortical echotexture is unremarkable. There are no masses. There is good corticomedullary differentiation. There is no hydronephrosis. There are no perinephric fluid collections. Multiple ultrasonographic images of the left kidney show the left kidney to measure 10.2 x 4.7 x 4.7 cm. The renal cortical echotexture is unremarkable. There are no masses. There is good corticomedullary differentiation. There is no hydronephrosis. There are no perinephric fluid collections. IMPRESSION: Unremarkable renal ultrasonography. The cyst seen in the upper pole of the right kidney on the CT examination of 04/19/2020 is not seen on today's ultrasound exam. <Electronically signed by Ebenezer Yarbrough > 11/14/20 [id number]
== END ==
LOC: M RAD 15:04
PROVIDERS: ATTEND Nurse Practitioner Adult Health
DX: N20.0 Calculus of kidney (principal)

== ENCOUNTER → 2020-11-15 | Outpatient (CLI) | payer MEDICARE, OTHER ==
--- NOTE | 2020-11-15 14:10 | REP ---
INDICATION: Dense breasts COMPARISON: None TECHNIQUE: Real-time sonographic evaluation of the breasts as described above. FINDINGS: There are no cystic or solid masses. IMPRESSION: ACR category 2 benign bilateral whole breast screening ultrasonography. <Electronically signed by Ebenezer Yarbrough > 11/15/20 [id number]
== END ==
LOC: M WHC 13:09
PROVIDERS: ATTEND Nurse Practitioner Adult Health
DX: R92.2 Inconclusive mammogram (principal)

== ENCOUNTER → 2021-01-16 | Outpatient (REF) | payer MEDICARE, OTHER ==
[~2021-01-16] MED LIST changes: +ASPI81TA26 PO; +GABA-282 PO; +LEXA1TAB2 PO; +LOSA100T45 PO; -LOSA100T50 PO; +VITMTA PO
[2021-01-16 17:47] LABS: PERCENT SATURATION 3.4 % (13.2-45.0)
== END ==
LOC: M LAB REF 16:51
PROVIDERS: ATTEND Nurse Practitioner Adult Health
DX: D50.9 Iron deficiency anemia, unspecified (principal)

== ENCOUNTER → 2021-01-17 | Outpatient (CLI) | payer MEDICARE, OTHER | LOC: M WUC 15:41 | PROVIDERS: ATTEND Nurse Practitioner Adult Health | DX: M77.32 Calcaneal spur, left foot (principal); M79.672 Pain in left foot ==

== ENCOUNTER → 2021-01-22 | Outpatient (REF) | payer MEDICARE ==
[~2021-01-22] MED LIST changes: -ASPI81TA26 PO; -GABA-282 PO; -LEXA1TAB2 PO; -LOSA100T45 PO; +LOSA100T50 PO; -VITMTA PO
== END ==
LOC: M LAB REF 10:01
PROVIDERS: ATTEND Nurse Practitioner Adult Health
DX: R19.7 Diarrhea, unspecified (principal)

== ENCOUNTER → 2021-01-23 | Outpatient (CLI) | payer MEDICARE ==
--- NOTE | 2021-01-23 16:16 | REP ---
INDICATION: LT NECK MASS. COMPARISON: None. TECHNIQUE: Real-time sonographic evaluation of right neck soft tissues performed at the site of a reported palpable lump. FINDINGS: No cystic or solid nodule is seen at the site of the palpable lump in the right neck. The lump appears to correspond to the carotid bulb, which is widely patent. IMPRESSION: No cystic or solid nodule seen at the site of the reported palpable lump in the right neck soft tissues. The lump appears to correspond to the normal carotid bulb. <Electronically signed by Rex Gerard > 01/23/21 [id number]
== END ==
LOC: M RAD 14:54
PROVIDERS: ATTEND Nurse Practitioner Adult Health
DX: R22.1 Localized swelling, mass and lump, neck (principal)

== ENCOUNTER 2021-01-24 07:22 | Outpatient (CLI) | payer MEDICARE ==
[2021-01-24] VITALS (7 sets, daily range): BP systolic 139–169; BP diastolic 63–77
[~2021-01-24] VITALS: Ht 165.1 cm; Wt 63.6 kg
[2021-01-24] MEDS ORDERED: ROPI1TAB3 PO (07:42)
[2021-01-24] MEDS ORDERED: IRON SUCROSE 25 MG in NS 25 ML IV ONE (08:00)
[2021-01-24] MEDS ORDERED: IRON SUCROSE 475 MG in NS 250 ML IV ONE (08:00)
== END 2021-01-24 12:40 | disposition home or self-care (01) ==
LOC: M INFU 07:22
PROVIDERS: ATTEND Nurse Practitioner Adult Health
DX: D50.9 Iron deficiency anemia, unspecified (principal); Z88.0 Allergy status to penicillin; Z88.2 Allergy status to sulfonamides; Z88.5 Allergy status to narcotic agent
CPT/HCPCS: 96365; 96366; J1756

== ENCOUNTER → 2021-02-27 | Outpatient (REF) | payer MEDICARE ==
[~2021-02-27] MED LIST changes: +LOSA100T45 PO; -LOSA100T50 PO
[2021-02-27 22:53] LABS: PERCENT SATURATION 8.2 % (13.2-45.0)
== END ==
LOC: M LAB REF 16:41
PROVIDERS: ATTEND Nurse Practitioner Adult Health
DX: D64.9 Anemia, unspecified (principal)

== ENCOUNTER → 2021-03-15 | Outpatient (CLI) | payer MEDICARE ==
[~2021-03-15] MED LIST changes: +ASPI81TA26 PO; +GABA-282 PO; +LEXA1TAB2 PO; +VITMTA PO
== END ==
LOC: M LABSMTC 09:11
PROVIDERS: ATTEND Anesthesiology
DX: Z01.812 Encounter for preprocedural laboratory examination (principal); Z11.52 Encounter for screening for COVID-19

== ENCOUNTER 2021-03-19 11:39 | Day surgery (SDC) | payer MEDICARE ==
[~2021-03-19] VITALS: Ht 165.1 cm; Wt 5488.9 kg
[~2021-03-19 11:39] MED LIST changes: +NS 1,000 ML IV ONE
[2021-03-19] MEDS ORDERED: propofoL 200 MG/20 ML VIAL As Ordered ONE (12:53)
[2021-03-19] MEDS ORDERED: fentaNYL 100 MCG/2 ML INJECTION (J3010) As Ordered ONE (12:53)
[2021-03-19] MEDS ORDERED: LIDOCAINE 2% 100MG/5ML SDV (FOR ANES.) As Ordered ONE (12:53)
[2021-03-19 14:09] VITALS: BP 144/74
== END 2021-03-19 14:11 | disposition home or self-care (01) ==
LOC: M OPP 11:39
PROVIDERS: ATTEND Internal Medicine Gastroenterology
DX: K63.5 Polyp of colon (principal); K55.20 Angiodysplasia of colon without hemorrhage; K64.0 First degree hemorrhoids; R19.5 Other fecal abnormalities; K22.89 Other specified disease of esophagus; K44.9 Diaphragmatic hernia without obstruction or gangrene; R12 Heartburn; Z79.82 Long term (current) use of aspirin; Z79.891 Long term (current) use of opiate analgesic; Z79.899 Other long term (current) drug therapy; Z88.0 Allergy status to penicillin; Z88.2 Allergy status to sulfonamides; Z88.5 Allergy status to narcotic agent; F17.210 Nicotine dependence, cigarettes, uncomplicated
CPT/HCPCS: 43239; 45380; 88305; J3010

== ENCOUNTER → 2021-05-17 | Outpatient (REF) | payer MEDICARE ==
[~2021-05-17] MED LIST changes: -NS 1,000 ML IV ONE
== END ==
LOC: M LAB REF 12:49
PROVIDERS: ATTEND Internal Medicine Pulmonary Disease
DX: R93.89 Abnormal findings on diagnostic imaging of other specified body structures (principal); J43.1 Panlobular emphysema

== ENCOUNTER → 2021-07-27 | Outpatient (CLI) | payer MEDICARE | LOC: M WUC 09:39 | PROVIDERS: ATTEND Physician Assistant | DX: S00.33XA Contusion of nose, initial encounter (principal); S30.0XXA Contusion of lower back and pelvis, initial encounter ==

== ENCOUNTER → 2021-09-17 | Outpatient (CLI) | payer MEDICARE ==
[~2021-09-17] MED LIST changes: +GNP250TA9 PO; +IRON240T PO
[2021-09-17 12:02] LABS: HEMATOCRIT 30.7 % (36.0-47.0); HEMOGLOBIN 9.6 g/dl (12.0-15.5); MEAN CORPUSCULAR HGB CONC 31.3 g/dl (32.0-36.5); MEAN CORPUSCULAR VOLUME 95.9 fl (80.0-96.0); PLATELET COUNT, AUTOMATED 345 10^3/uL (150-450); WHITE BLOOD COUNT 4.7 10^3/uL (4.0-10.0)
[2021-09-17 12:53] LABS: ALBUMIN 3.3 GM/DL (3.2-5.2); ALT/SGPT 16 U/L (12-78); BILIRUBIN,TOTAL 0.5 MG/DL (0.2-1.0); BLOOD UREA NITROGEN 16 MG/DL (7-18); CALCIUM LEVEL 8.7 MG/DL (8.8-10.2); CARBON DIOXIDE LEVEL 27 MEQ/L (21-32); CHLORIDE LEVEL 104 MEQ/L (98-107); CREATININE FOR GFR 0.71 MG/DL (0.55-1.30); GLOMERULAR FILTRATION RATE > 60.0 (>39); GLUCOSE, FASTING 118 MG/DL (70-100); POTASSIUM SERUM 4.1 MEQ/L (3.5-5.1); SODIUM LEVEL 136 MEQ/L (136-145); TOTAL PROTEIN 6.1 GM/DL (6.4-8.2)
== END ==
LOC: M EKG 11:13
PROVIDERS: ATTEND Anesthesiology
DX: Z01.818 Encounter for other preprocedural examination (principal); Z11.52 Encounter for screening for COVID-19

== ENCOUNTER → 2021-09-21 | Outpatient (CLI) | payer MEDICARE | LOC: M WUC 13:52 | PROVIDERS: ATTEND Physician Assistant | DX: S20.212A Contusion of left front wall of thorax, initial encounter (principal); I51.7 Cardiomegaly ==

== ENCOUNTER → 2021-09-23 | Outpatient (CLI) | payer MEDICARE | LOC: M LABSMTC 10:21 | PROVIDERS: ATTEND Anesthesiology | DX: Z01.812 Encounter for preprocedural laboratory examination (principal); Z20.822 Contact with and (suspected) exposure to COVID-19 ==

== ENCOUNTER 2021-09-25 07:08 | Day surgery (SDC) | payer MEDICARE ==
[~2021-09-25] VITALS: Ht 165.1 cm; Wt 54.4 kg
[2021-09-25] MEDS ORDERED: LR 1,000 ML IV SCH ×2 (07:40→09:55)
[2021-09-25] MEDS ORDERED: LevoFLOXacin IV 500 MG in IV 1 EA IV ONE (08:10)
[2021-09-25] MEDS ORDERED: BUPIVACAINE LIPOSOME/PF 1.3% 20ML VIAL (13.3MG/ML)(EXPAREL) As Ordered ONE (08:49)
[2021-09-25] MEDS ORDERED: BUPIVACAINE HCL 0.25% 30ML VIAL As Ordered ONE (08:49)
[2021-09-25] MEDS ORDERED: LIDOCAINE 2% 100MG/5ML SDV (FOR ANES.) As Ordered ONE (08:53)
[2021-09-25] MEDS ORDERED: propofoL 200 MG/20 ML VIAL As Ordered ONE (08:53)
[2021-09-25] MEDS ORDERED: ROCURONIUM BROMIDE 50 MG/5 ML VIAL As Ordered ONE (08:54)
[2021-09-25] MEDS ORDERED: fentaNYL 100 MCG/2 ML INJECTION As Ordered ONE (08:55)
[2021-09-25] MEDS ORDERED: dexameTHASONE 4 MG/ML 1ML VIAL (J1100 PER 1MG) As Ordered ONE (09:21)
[2021-09-25] MEDS ORDERED: ONDANSETRON 4MG 2ML VIAL As Ordered ONE (09:21)
[2021-09-25] MEDS ORDERED: ePHEDrine SULFATE 25 MG/5 ML(5MG/ML) SYRINGE As Ordered ONE (09:24)
[2021-09-25] MEDS ORDERED: PHENYLephrine 500MCG 5ML (100MCG/ML) SYRINGE As Ordered ONE (09:34)
[2021-09-25] MEDS ORDERED: ACETAMINOPHEN 1000MG 100ML IV BTL (OFIRMEV) (J0131 PER 10MG) As Ordered ONE (09:34)
[2021-09-25] MEDS ORDERED: SUGAMMADEX SODIUM 500 MG/5 ML VIAL (BRIDION) As Ordered ONE (09:39)
[2021-09-25] MEDS ORDERED: oxyCODONE 5MG TAB PO PRN (09:55)
[2021-09-25] MEDS ORDERED: MORPHINE 2 MG/ML 1ML VIAL IV PRN (09:55)
[2021-09-25] MEDS ORDERED: ONDANSETRON 4MG 2ML VIAL IV PRN (09:55)
[2021-09-25] MEDS ORDERED: fentaNYL 100 MCG/2 ML INJECTION IV PRN (09:55)
[2021-09-25] MEDS ORDERED: NS 1,000 ML IV SCH (10:25)
[2021-09-25] MEDS ORDERED: traMADol 50 MG TAB PO PRN ×2 (10:25)
[2021-09-25 10:39] VITALS: BP 149/68
== END 2021-09-25 11:16 | disposition home or self-care (01) ==
LOC: M SDC 07:08
PROVIDERS: ATTEND Surgery
DX: K43.9 Ventral hernia without obstruction or gangrene (principal); I10 Essential (primary) hypertension; F41.9 Anxiety disorder, unspecified; F32.9 Major depressive disorder, single episode, unspecified; Z87.442 Personal history of urinary calculi; Z88.0 Allergy status to penicillin; Z88.2 Allergy status to sulfonamides; Z88.1 Allergy status to other antibiotic agents; Z88.5 Allergy status to narcotic agent
CPT/HCPCS: 49570; 88302; C9290; J0131; J1100; J1956; J2370; J2405; J3010

== ENCOUNTER → 2021-10-29 | Outpatient (CLI) | payer MEDICARE | LOC: M WUC 11:13 | PROVIDERS: ATTEND Nurse Practitioner Adult Health | DX: R07.81 Pleurodynia (principal); Z91.81 History of falling ==

== ENCOUNTER → 2021-11-13 | Outpatient (CLI) | payer MEDICARE | LOC: M PLAIMG 08:44 | PROVIDERS: ATTEND Internal Medicine Pulmonary Disease | DX: R91.8 Other nonspecific abnormal finding of lung field (principal); R93.89 Abnormal findings on diagnostic imaging of other specified body structures ==

== ENCOUNTER → 2021-12-17 | Outpatient (CLI) | payer MEDICARE | LOC: M PLARAD 12:57 | PROVIDERS: ATTEND Internal Medicine Pulmonary Disease | DX: R91.1 Solitary pulmonary nodule (principal) | CPT/HCPCS: 78815; A9552 ==

== ENCOUNTER → 2021-12-19 | Outpatient (REF) | payer MEDICARE ==
[2021-12-19 12:52] LABS: HEMATOCRIT 31.4 % (36.0-47.0)
[2021-12-19 13:57] LABS: PERCENT SATURATION 3.6 % (13.2-45.0)
== END ==
LOC: M LAB REF 12:10
PROVIDERS: ATTEND Nurse Practitioner Adult Health
DX: D50.9 Iron deficiency anemia, unspecified (principal)

== ENCOUNTER → 2021-12-25 | Outpatient (CLI) | payer MEDICARE | LOC: M WHC 14:26 | PROVIDERS: ATTEND Nurse Practitioner Adult Health | DX: Z12.31 Encounter for screening mammogram for malignant neoplasm of breast (principal) ==

== ENCOUNTER → 2022-01-09 | Outpatient (CLI) | payer MEDICARE | LOC: M CARPUL 07:38 | PROVIDERS: ATTEND Nurse Practitioner Adult Health | DX: I08.0 Rheumatic disorders of both mitral and aortic valves (principal); I27.20 Pulmonary hypertension, unspecified ==

== ENCOUNTER → 2022-07-08 | Outpatient (CLI) | payer MEDICARE ==
[~2022-07-08] MED LIST changes: -LOSA100T45 PO; +LOSA100T46 PO
== END ==
LOC: M PLAIMG 13:00
PROVIDERS: ATTEND Internal Medicine Pulmonary Disease
DX: R49.0 Dysphonia (principal)

== ENCOUNTER → 2023-04-23 | Outpatient (CLI) | payer OTHER ==
[~2023-04-23] MED LIST changes: +DICL100G10; -DICL1GEL3; -DOCU-153 PO; -GABA-283 PO; +GABA-284 PO; -ROPI1TAB3 PO; +ROPI1TAB73 PO; +STOO100C30 PO
== END ==
LOC: M RAD 09:33
PROVIDERS: ATTEND Internal Medicine Pulmonary Disease
DX: I77.819 Aortic ectasia, unspecified site (principal)

== ENCOUNTER → 2023-06-19 | Outpatient (CLI) | payer OTHER ==
[2023-06-19 11:31] LABS: BLOOD UREA NITROGEN 20 MG/DL (9-23); CREATININE FOR GFR 0.69 MG/DL (0.55-1.30); GLOMERULAR FILTRATION RATE > 60.0 (>39)
== END ==
LOC: M LAB 10:40
PROVIDERS: ATTEND Psychiatry & Neurology Neurology
DX: I10 Essential (primary) hypertension (principal)

== ENCOUNTER → 2023-07-24 | Outpatient (CLI) | payer MEDICARE | LOC: M PAIN 13:00 | PROVIDERS: ATTEND Nurse Practitioner Family | DX: M48.00 Spinal stenosis, site unspecified (principal); G89.29 Other chronic pain; M54.50 Low back pain, unspecified; F17.210 Nicotine dependence, cigarettes, uncomplicated; Z79.82 Long term (current) use of aspirin; Z79.899 Other long term (current) drug therapy; Z88.0 Allergy status to penicillin; Z88.2 Allergy status to sulfonamides; Z88.8 Allergy status to other drugs, medicaments and biological substances ==

== ENCOUNTER 2023-09-06 11:15 | Emergency (ER) | payer MEDICARE ==
[~2023-09-06] VITALS: Ht 165.1 cm; Wt 53.2 kg
[2023-09-06 13:36] VITALS: BP 158/73; TEMP 96.5; O2SAT 94
== END 2023-09-06 13:49 | disposition home or self-care (01) ==
LOC: M ED 11:15
DX: S06.0X0A Concussion without loss of consciousness, initial encounter (principal); Y92.9 Unspecified place or not applicable; Y93.9 Activity, unspecified; Y99.9 Unspecified external cause status; F17.210 Nicotine dependence, cigarettes, uncomplicated; Z88.0 Allergy status to penicillin; Z88.1 Allergy status to other antibiotic agents; Z88.2 Allergy status to sulfonamides; Z88.5 Allergy status to narcotic agent; Z79.51 Long term (current) use of inhaled steroids; Z79.810 Long term (current) use of selective estrogen receptor modulators (SERMs); Z79.899 Other long term (current) drug therapy

== ENCOUNTER → 2023-09-17 | Outpatient (CLI) | payer OTHER | LOC: M RAD 07:03 | PROVIDERS: ATTEND Orthopaedic Surgery | DX: M16.0 Bilateral primary osteoarthritis of hip (principal); M41.9 Scoliosis, unspecified; M51.36 Other intervertebral disc degeneration, lumbar region ==

== ENCOUNTER → 2023-11-26 | Outpatient (REF) | payer OTHER, MEDICARE ==
[~2023-11-26] MED LIST changes: +GABA-1172 PO; -GABA-282 PO
== END ==
LOC: M SFHCDERM 16:40
PROVIDERS: ATTEND Physician Assistant
DX: L57.0 Actinic keratosis (principal)

== ENCOUNTER → 2024-02-25 | Outpatient (CLI) | payer MEDICARE, OTHER | LOC: M RAD 13:36 | PROVIDERS: ATTEND Internal Medicine Pulmonary Disease | DX: R05.9 Cough, unspecified (principal) ==

== ENCOUNTER → 2024-05-18 | Outpatient (CLI) | payer OTHER | LOC: M RAD 08:42 | PROVIDERS: ATTEND Internal Medicine Pulmonary Disease | DX: F17.218 Nicotine dependence, cigarettes, with other nicotine-induced disorders (principal) ==

== ENCOUNTER → 2024-06-03 | Outpatient (CLI) | payer OTHER | LOC: M CARPUL 13:35 | PROVIDERS: ATTEND Internal Medicine Pulmonary Disease | DX: R91.8 Other nonspecific abnormal finding of lung field (principal) ==

== ENCOUNTER → 2024-06-04 | Outpatient (REF) | payer OTHER ==
[2024-06-04 13:45] LABS: PERCENT SATURATION 3.6 % (13.2-45.0)
[2024-06-04 13:47] LABS: FERRITIN 17.3 NG/ML (7.3-270.7)
== END ==
LOC: M LAB REF 12:28
PROVIDERS: ATTEND Physician Assistant Medical
DX: D64.9 Anemia, unspecified (principal)

== ENCOUNTER → 2024-06-07 | Outpatient (CLI) | payer OTHER | LOC: M LAB 10:39 | PROVIDERS: ATTEND Physician Assistant Medical | DX: D64.9 Anemia, unspecified (principal) ==

== ENCOUNTER 2024-06-08 08:06 | Outpatient (CLI) | payer OTHER ==
[~2024-06-08] VITALS: Ht 160 cm; Wt 54.5 kg
[2024-06-08] MEDS ORDERED: NS (Normal Saline) 0.9% 250 ML IV ONE (08:30)
[2024-06-08 08:38] VITALS: BP 135/65; TEMP 97.7; O2SAT 98
[2024-06-08 08:55] VITALS: BP 144/63; TEMP 98.6
[2024-06-08 10:00] VITALS: BP 152/66; TEMP 98; O2SAT 97
[2024-06-08 10:45] VITALS: BP 155/71; TEMP 98.6; O2SAT 98
[2024-06-08 11:45] VITALS: BP_SYST 159; TEMP 98.4
[2024-06-08 12:05] VITALS: BP 151/79; TEMP 97.8; O2SAT 97
== END 2024-06-08 12:20 ==
LOC: M INFU 08:06
PROVIDERS: ATTEND Nurse Practitioner Adult Health
DX: D64.9 Anemia, unspecified (principal); Z88.0 Allergy status to penicillin; Z88.2 Allergy status to sulfonamides; Z88.5 Allergy status to narcotic agent
CPT/HCPCS: 36430; P9016

== ENCOUNTER → 2024-06-15 | Outpatient (CLI) | payer OTHER | LOC: M PLARAD 08:21 | PROVIDERS: ATTEND Internal Medicine Pulmonary Disease | DX: R91.8 Other nonspecific abnormal finding of lung field (principal) | CPT/HCPCS: 78815; A9552 ==

== ENCOUNTER → 2024-06-21 | Outpatient (CLI) | payer OTHER ==
[~2024-06-21] MED LIST changes: +ALBU2.5V10; +ALBU8.5H; +EQ A10TA2 PO; +IPRA6SP; +METO1TAB7 PO; +MULTTAB61 PO; +NIAC500C5 PO; +PRES1CAP PO; +VITA100093 PO; +potassium PO
[2024-06-21 15:01] LABS: PLATELET COUNT, AUTOMATED 334 10^3/uL (150-450)
[2024-06-21 15:29] LABS: INR 0.93; PROTHROMBIN TIME 12.8 SECONDS (12.5-14.5)
== END ==
LOC: M PLALAB 12:43
PROVIDERS: ATTEND Internal Medicine Pulmonary Disease
DX: Z01.812 Encounter for preprocedural laboratory examination (principal); Z79.899 Other long term (current) drug therapy

== ENCOUNTER 2024-06-23 07:11 | Day surgery (SDC) | payer OTHER ==
[~2024-06-23] VITALS: Ht 162.6 cm; Wt 53.1 kg
[~2024-06-23 07:11] MED LIST changes: +ALBUTEROL SULFATE 2.5MG/0.5ML INH CONCENTRATE NEB SOLN INH ONE; +LIDOCAINE 2% 100MG/5ML SDV (FOR ANES.) As Ordered ONE; +MIDAZOLAM INJ 2MG/2ML VIAL As Ordered ONE; +ROCURONIUM BROMIDE 50MG/5ML VIAL As Ordered ONE; +fentaNYL 100 MCG/2 ML INJECTION As Ordered ONE; +propofoL 200 MG/20 ML VIAL As Ordered ONE
[2024-06-23] MEDS ORDERED: LR 1,000 ML IV SCH ×2 (07:40→10:30)
[2024-06-23] MEDS ORDERED: KETOROLAC 30 MG/ML 1ML VIAL As Ordered ONE (08:16)
[2024-06-23] MEDS ORDERED: ONDANSETRON 4MG 2ML VIAL As Ordered ONE (08:17)
[2024-06-23] MEDS ORDERED: SUGAMMADEX SODIUM 500 MG/5 ML VIAL (BRIDION) As Ordered ONE (08:17)
[2024-06-23] MEDS: LIDOCAINE PRES-FREE 2% 10ML AMP INH ONE (09:08)
[2024-06-23] MEDS: IPRATROPIUM 0.5MG/ALBUTEROL 2.5MG INH SOL UD 3ML NEB ONE (09:08)
[2024-06-23] MEDS: CETACAINE SPRAY 5GM As Ordered ONE (09:46)
[2024-06-23] MEDS ORDERED: ePHEDrine SULFATE 25 MG/5 ML(5MG/ML) SYRINGE As Ordered ONE (10:04)
[2024-06-23] MEDS: EPINEPHrine 1MG/10ML SYRINGE 1.5IN As Ordered ONE (10:20)
[2024-06-23] MEDS ORDERED: ONDANSETRON 4MG 2ML VIAL IV PRN (10:30)
[2024-06-23] MEDS ORDERED: oxyCODONE 5MG TAB PO PRN (10:30)
[2024-06-23] MEDS ORDERED: HYDROMORPHONE HCL 0.5 MG/ 0.5 ML SYRINGE IV PRN (10:30)
[2024-06-23] MEDS ORDERED: fentaNYL 100 MCG/2 ML INJECTION IV PRN (10:30)
[2024-06-23 11:52] VITALS: BP 126/77; TEMP 97.9; O2SAT 94
== END 2024-06-23 11:54 | disposition home or self-care (01) ==
LOC: M SDC 07:11
PROVIDERS: ATTEND Internal Medicine Pulmonary Disease
DX: J84.10 Pulmonary fibrosis, unspecified (principal); J98.4 Other disorders of lung; Z88.0 Allergy status to penicillin; Z88.1 Allergy status to other antibiotic agents; Z88.2 Allergy status to sulfonamides; Z88.5 Allergy status to narcotic agent; Z79.899 Other long term (current) drug therapy; F17.210 Nicotine dependence, cigarettes, uncomplicated
CPT/HCPCS: 31623; 31624; 31627; 31628; 31652; 31654; 71045; 76000; 88104; 88108; 88305; 88313; 93005; C1601; J0171; J1100; J1885; J2250; J2405; J3010; S2900

== ENCOUNTER → 2024-06-28 | Outpatient (CLI) | payer OTHER ==
[~2024-06-28] MED LIST changes: -ALBUTEROL SULFATE 2.5MG/0.5ML INH CONCENTRATE NEB SOLN INH ONE; -LIDOCAINE 2% 100MG/5ML SDV (FOR ANES.) As Ordered ONE; -MIDAZOLAM INJ 2MG/2ML VIAL As Ordered ONE; -ROCURONIUM BROMIDE 50MG/5ML VIAL As Ordered ONE; -fentaNYL 100 MCG/2 ML INJECTION As Ordered ONE; -propofoL 200 MG/20 ML VIAL As Ordered ONE
== END ==
LOC: M ONCR 08:56
PROVIDERS: ATTEND General Practice
DX: C34.31 Malignant neoplasm of lower lobe, right bronchus or lung (principal); F17.218 Nicotine dependence, cigarettes, with other nicotine-induced disorders; Z80.1 Family history of malignant neoplasm of trachea, bronchus and lung; Z88.0 Allergy status to penicillin; Z88.1 Allergy status to other antibiotic agents; Z88.2 Allergy status to sulfonamides; Z88.5 Allergy status to narcotic agent; Z79.82 Long term (current) use of aspirin; Z79.899 Other long term (current) drug therapy
CPT/HCPCS: 99406; G0463

== ENCOUNTER → 2024-07-01 | Outpatient (REF) | payer OTHER | LOC: M LAB REF 13:28 | PROVIDERS: ATTEND Nurse Practitioner Adult Health | DX: D50.9 Iron deficiency anemia, unspecified (principal) ==